=== PATIENT | female | born 1985 | race Caucasian/White ===

== ENCOUNTER 2016-07-26 22:07 | Emergency (ER) | payer OTHER ==
[~2016-07-26] VITALS: Ht 170.2 cm; Wt 52.2 kg
[2016-07-26] MEDS ORDERED: KLON0.5T PO (22:23)
[2016-07-26] MEDS ORDERED: NEUR300C PO (22:24)
[2016-07-26] MEDS ORDERED: LAMI25TA PO (22:25)
[2016-07-27 01:29] VITALS: BP 93/53
[2016-07-27] MEDS ORDERED: NAPR500T PO (01:58)
[2016-07-27] MEDS ORDERED: NORCO 5/325MG TABLET (BULK) PO ONE (02:00)
--- NOTE | 2016-07-27 03:39 | REP ---
Clinical: Trauma. Technique: AP, lateral views left knee . Findings: The osseous structures and joint spaces are intact and normal. There is no evidence for acute fracture or dislocation. No joint effusion is appreciated. Surrounding soft tissues are unremarkable. No subcutaneous emphysema or radiodense foreign body. Impression: Normal examination. No acute fracture or dislocation. Signed by Babar Mathis MD 07/27/2016 03:31 A
== END 2016-07-27 02:37 | disposition home or self-care (01) ==
LOC: M ED 07-27 02:06
DX: S80.02XA Contusion of left knee, initial encounter (principal); S02.5XXA Fracture of tooth (traumatic), initial encounter for closed fracture; W01.0XXA Fall on same level from slipping, tripping and stumbling without subsequent striking against object, initial encounter; Y92.511 Restaurant or cafe as the place of occurrence of the external cause; Y93.01 Activity, walking, marching and hiking; Y99.8 Other external cause status; F17.210 Nicotine dependence, cigarettes, uncomplicated; Z88.0 Allergy status to penicillin; Z79.899 Other long term (current) drug therapy; F43.10 Post-traumatic stress disorder, unspecified